=== PATIENT | female | born 2005 | race Caucasian/White ===

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

== ENCOUNTER 2025-01-03 17:54 | Emergency (ER) | payer MEDICAID ==
[~2025-01-03] VITALS: Ht 160 cm; Wt 68.0 kg
[2025-01-03] MEDS ORDERED: SODIUM CHLORIDE 0.9% 1,000 ML IV ONE ×3 (18:05→18:15)
== END 2025-01-03 18:43 | disposition left against medical advice (07) ==
LOC: ED 17:54
DX: R07.9 Chest pain, unspecified (principal); Z53.21 Procedure and treatment not carried out due to patient leaving prior to being seen by health care provider